=== PATIENT | male | born 1950 | race Caucasian/White ===

== ENCOUNTER 2022-04-30 12:09 | Inpatient (IN) | payer MEDICARE ==
[2022-04-30 12:43] LABS: #Eosinphils 0.1 thou/uL (0.0-0.7); #Lymphocytes 1.3 thou/uL (1.20-3.40); #Monocytes 0.5 thou/uL (0.11-0.59); #Neutrophils 6.3 thou/uL (1.40-6.50); %Basophils 0.4 % (0.0-1.0); %Eosinophils 0.8 % (0.0-10.0); %Lymphocytes 15.9 % (21.0-51.0); %Monocytes 6.1 % (0.0-10.0); %Neutrophils 76.7 % (42.0-75.0); Hemoglobin 17.8 g/dL (14.0-18.0); Mean Corpuscular HGB CONC 33.7 g/dL (32.0-36.0); Mean Corpuscular Hemoglobin 32.6 pg (27.0-31.0); Mean Corpuscular Volume 96.8 fl (78.0-98.0); Mean Platelet Volume 8.5 fL (7.4-10.4); Platelet Count 234 10x3/uL (130-400); RBC Distribution Width 12.2 % (11.5-14.5); Red Blood Cell (RBC) Count 5.46 mill/uL (4.70-6.10); White Blood Cell (WBC) Count 8.1 10x3/uL (4.8-10.8)
[2022-04-30] MEDS ORDERED: Labetalol HCl 100 MG/20 ML VIAL ONE (12:43)
[2022-04-30] MEDS ORDERED: Aspirin Chewable 81 MG TAB ONE (12:43)
[2022-04-30] MEDS ORDERED: Acetaminophen 325 MG TAB PO PRN (13:19)
[2022-04-30] MEDS ORDERED: Senokot S 8.6-50 MG TAB PO PRN (13:19)
[2022-04-30] MEDS ORDERED: Ondansetron ODT 4 MG TAB PO PRN (13:19)
[2022-04-30] MEDS ORDERED: Ondansetron PF 4 MG/2 ML Vial IVP PRN (13:19)
[2022-04-30] MEDS ORDERED: Calcium Carbonate 500 MG ChewTAB PO PRN (13:19)
[2022-04-30 13:20] LABS: ALT (SGPT) 29 U/L (8-55); AST (SGOT) 29 U/L (5-34); Albumin 4.5 g/dL (3.4-4.8); Alkaline Phosphatase 76 U/L (40-110); Anion Gap 13 mmol/L (10-20); BUN (Urea Nitrogen) 13 mg/dL (8.4-25.7); Calc. Creatinine Clearance 0 mL/min (70-130); Calcium 10.5 mg/dL (7.8-10.44); Carbon Dioxide 26 mmol/L (23-31); Chloride 105 mmol/L (98-107); Estimated GFR 72; Globulin 3.2 g/dL (2.4-3.5); Glucose 111 mg/dL (83-110); Lipase 27 U/L (8-78); Magnesium 1.8 mg/dL (1.6-2.6); Potassium 4.5 mmol/L (3.5-5.1); Protein, Total 7.7 g/dL (5.8-8.1); Sodium 139 mmol/L (136-145)
[2022-04-30] MEDS ORDERED: hydrALAZINE 20 MG/ML VIAL SLOW IVP PRN (13:23)
[2022-04-30 15:56] VITALS: BMI 25.7
[2022-04-30] MEDS: Sodium Chloride 0.9% 1,000 ML IV SCH (16:01)
[2022-04-30] MEDS ORDERED: Atorvastatin Calcium 40 MG TAB PO SCH (21:00)
[2022-05-01] MEDS: Sodium Chloride 0.9% 1,000 ML IV SCH (02:21)
[2022-05-01 05:16] LABS: #Eosinphils 0.2 thou/uL (0.0-0.7); #Lymphocytes 1.7 thou/uL (1.20-3.40); #Monocytes 0.6 thou/uL (0.11-0.59); #Neutrophils 4.5 thou/uL (1.40-6.50); %Basophils 0.7 % (0.0-1.0); %Eosinophils 2.2 % (0.0-10.0); %Lymphocytes 24.9 % (21.0-51.0); %Monocytes 7.9 % (0.0-10.0); %Neutrophils 64.4 % (42.0-75.0); Hemoglobin 15.5 g/dL (14.0-18.0); Mean Corpuscular HGB CONC 32.6 g/dL (32.0-36.0); Mean Corpuscular Hemoglobin 31.8 pg (27.0-31.0); Mean Corpuscular Volume 97.6 fl (78.0-98.0); Mean Platelet Volume 8.4 fL (7.4-10.4); Platelet Count 205 10x3/uL (130-400); RBC Distribution Width 12.2 % (11.5-14.5); Red Blood Cell (RBC) Count 4.86 mill/uL (4.70-6.10); White Blood Cell (WBC) Count 6.9 10x3/uL (4.8-10.8)
[2022-05-01 05:24] LABS: Hemoglobin A1c 5.2 % (4.0-6.0)
[2022-05-01 05:49] LABS: ALT (SGPT) 24 U/L (8-55); AST (SGOT) 17 U/L (5-34); Albumin 3.9 g/dL (3.4-4.8); Alkaline Phosphatase 66 U/L (40-110); Anion Gap 12 mmol/L (10-20); BUN (Urea Nitrogen) 12 mg/dL (8.4-25.7); Calc. Creatinine Clearance 74 mL/min (70-130); Carbon Dioxide 27 mmol/L (23-31); Cardiac Risk 4.4 (Less than 4.5); Chloride 105 mmol/L (98-107); Cholesterol 146 mg/dl (< 200 Desired); Estimated GFR 72; Globulin 2.4 g/dL (2.4-3.5); Glucose 106 mg/dL (83-110); HDL Cholesterol 33 mg/dL (>60 Neg Risk); LDL Cholesterol, Calculated 97 mg/dL; Potassium 3.9 mmol/L (3.5-5.1); Protein, Total 6.3 g/dL (5.8-8.1); Sodium 140 mmol/L (136-145); Triglycerides 82 mg/dL (Less than 150)
[2022-05-01] MEDS ORDERED: Enoxaparin Sodium 40 MG/0.4 ML SYRINGE SC SCH (09:00)
[2022-05-01] MEDS ORDERED: Aspirin 81 mg Enteric Coated Tablet PO SCH (09:00)
[2022-05-01] MEDS ORDERED: Clopidogrel Bisulfate 75 MG TAB PO SCH (09:00)
[2022-05-01 13:04] VITALS: TEMP 97.9
[2022-05-01 18:21] VITALS: BP 174/71
== END 2022-05-01 15:10 | disposition home or self-care (01) | DRG 65 ==
LOC: ERS 12:09 → SUATTDRO 12:09 → ERHOLD 14:04 → NEURO 15:45
PROVIDERS: ADMIT Internal Medicine; ATTEND Internal Medicine
DX: I63.89 Other cerebral infarction (principal); I16.1 Hypertensive emergency; Z20.822 Contact with and (suspected) exposure to COVID-19; Z79.82 Long term (current) use of aspirin
CPT/HCPCS: 36415; 36416; 70450; 70496; 70498; 70551; 71045; 80053; 80061; 83036; 83690; 83735; 83880; 84443; 84484; 85025; 93005; 93306; J1650; U0003; U0005